=== PATIENT | male | born 1990 | race Caucasian/White ===

== ENCOUNTER 2016-08-26 00:13 | Emergency (ER) | payer SELFPAY ==
[~2016-08-26] VITALS: Ht 177.8 cm; Wt 72.0 kg
[2016-08-26 00:15] VITALS: BP 140/71; PULSE 66; RESP 16; TEMP 97.8; O2SAT 99
[2016-08-26] MEDS ORDERED: PENI500T PO (01:46)
[2016-08-26] MEDS ORDERED: IBUP800T23 PO (01:46)
--- NOTE | 2016-08-26 01:59 | PD ---
HPI Chief Complaint: Oral / Dental Pain or Problem Time Seen by Provider: 01:48 Travel History International Travel<30 days: No Contact w/Intl Traveler<30days: No Traveled to known affect area: No History of Present Illness HPI 26-year-old male presents for evaluation of dental pain. He has had intermittent dental pain for the past year. Today he woke up with increased pain in the right mandibular molars which prompted evaluation. The pain is throbbing pain that is constant worse with chewing. Associated with gingival edema. No fevers or chills. He reports that he saw a dentist in the past who recommended that he see an oral surgeon for this issue. No other complaints. PFSH Past Medical History Medical History: Denies Significant Hx Past Surgical History Surgical History: No Previous Surgery Social History Alcohol Use: No Tobacco Use: Yes Substance Use: No Allergies-Medications (Allergen,Severity, Reaction): Coded Allergies: No Known Allergies (Unverified , 08/26/16) Reported Meds & Prescriptions Reported Meds & Active Scripts Active Ibuprofen 800 Mg Tab 800 Mg PO Q6HR PRN Penicillin V Potassium 500 Mg Tab 500 Mg PO Q8H 10 Days Review of Systems Except as stated in HPI: all other systems reviewed are Neg Physical Exam Narrative GENERAL: Well-developed well-nourished male in no acute distress SKIN: Warm and dry. HEAD: Atraumatic. Normocephalic. EYES: Pupils equal and round. No scleral icterus. No injection or drainage. ENT: No nasal bleeding or discharge. Mucous membranes pink and moist. The right mandibular first molar is very decayed in the surrounding gumline is mildly edematous. No sublingual edema, no trismus. NECK: Trachea midline. No JVD. No lymphadenopathy, no submandibular edema Data Data Last Documented VS Vital Signs Date Time Temp Pulse Resp B/P Pulse Ox O2 Delivery O2 Flow Rate FiO2 08/26/16 00:15 97.8 66 16 140/71 99 Room Air MDM Medical Decision Making Medical Screen Exam Complete: Yes Emergency Medical Condition: Yes Medical Record Reviewed: Yes Differential Diagnosis Dental caries, pulpitis, pericoronitis, periodontal abscess Narrative Course 26-year-old male with intermittent dental pain for 1 year presents with one-day history of dental pain. Examination reveals dental caries. He is being discharged with penicillin, ibuprofen, recommended outpatient follow-up with a oral surgeon for definitive therapy. Diagnosis Primary Impression: Dental caries Additional Instructions: Medication as prescribed. Follow up with an oral surgeon. Return for any emergent medical conditions. Med/Other Pt SpecificInfo: Prescription(s) given Scripts Ibuprofen 800 Mg [id number] Mg PO Q6HR PRN (PAIN) #40 TAB Ref 0 Prov:Edie Viveros MD 08/26/16 Penicillin V Potassium 500 Mg [id number] Mg PO Q8H 10 Days Ref 0 Prov:Edie Viveros MD 08/26/16 Disposition: 01 DISCHARGE HOME Condition: Stable Clyde Quintanilla Aug 26, 2016 01:58
[2016-08-26] MEDS ORDERED: IBUPROFEN 800 MG TAB PO ONE (02:00)
[2016-08-26] MEDS ORDERED: PENICILLIN V POTASSIUM 500 MG TAB PO ONE (02:00)
== END 2016-08-26 02:17 | disposition home or self-care (01) ==
LOC: NEPD 00:13
DX: K02.9 Dental caries, unspecified (principal); Z72.0 Tobacco use
CPT/HCPCS: 99282

== ENCOUNTER 2016-09-23 23:13 | Emergency (ER) | payer SELFPAY ==
[~2016-09-23] VITALS: Ht 177.8 cm; Wt 68.0 kg
[~2016-09-23 23:13] MED LIST: IBUP800T23 PO; PENI500T PO
[2016-09-23 23:15] VITALS: BP 126/81; PULSE 60; RESP 16; TEMP 98.7; O2SAT 100
[2016-09-24 02:07] VITALS: BP 145/94; PULSE 53; RESP 18; O2SAT 100; O2SAT 99
[2016-09-24] MEDS ORDERED: ONDANSETRON HCL 4 MG/2 ML VIAL IV ONE (02:30)
[2016-09-24] MEDS ORDERED: SODIUM CHLOR 0.9% 1000 ML INJ 1,000 ML IV ONE (02:30)
[2016-09-24] MEDS ORDERED: CLINDAMYCIN INJ 900 MG in SODIUM CHLORIDE 0.9% INJ 100 ML IV ONE (02:30)
[2016-09-24] MEDS ORDERED: KETOROLAC TROMETHAMINE 30 MG/ML (IVP) VIAL IV PUSH ONE (02:30)
[2016-09-24 02:40] LABS: AUTOMATED NEUTROPHIL # 7.9 TH/MM3 (1.8-7.7); BASOPHIL % 0.2 % (0.0-2.0); EOSINOPHIL # 0.2 TH/MM3 (0-0.4); EOSINOPHIL % 1.4 % (0.0-4.0); HEMO FLAGS DIFF FINAL; MEAN CELL VOLUME 88.3 FL (80.0-100.0); MEAN CORPUSCULAR HEMOGLOBIN 29.8 PG (27.0-34.0); MEAN CORPUSCULAR HGB CONC 33.8 % (32.0-36.0); MONO % 10.6 % (0.0-8.0); NEUT % 63.8 % (16.0-70.0); PLATELET COUNT 188 TH/MM3 (150-450); RED BLOOD COUNT 4.64 MIL/MM3 (4.50-5.90); RED CELL DISTRIBUTION WIDTH 13.9 % (11.6-17.2); WHITE BLOOD COUNT 12.4 TH/MM3 (4.0-11.0)
--- NOTE | 2016-09-24 02:52 | PD ---
HPI Chief Complaint: Oral / Dental Pain or Problem Time Seen by Provider: 02:05 Travel History International Travel<30 days: No Contact w/Intl Traveler<30days: No Traveled to known affect area: No History of Present Illness HPI The patient is a 26 year old male who presents to the [facility] emergency department with a history of right-sided jaw pain and swelling that he reports recurred over the last few days. He reports that for the last year and a half he's intermittently had swelling and pain to a molar in the right mandible. He reports that he is currently uninsured and has not been able to afford following up with a dentist. He reports that he's been to the emergency department on multiple occasions and received antibiotic. He reports that the symptoms temporarily clear up and then recur. He denies having any fevers. He denies having any drainage in his mouth. He denies having any nausea, vomiting , or diarrhea. The patient was last treated through the emergency department related to a dental infection on August 26, 2016. He reports he was treated with penicillin which he reports did not seem to help much. On review of systems, the patient denies any recent cough, congestion, neck pain, chest pain , shortness of breath, abdominal pain, urinary symptoms, or neurologic symptoms. [facility] Past Medical History Narrative Medical The patient's past medical history is reportedly none. Medical History: Denies Significant Hx Diminished Hearing: No Tetanus Vaccination: Unknown Influenza Vaccination: No Past Surgical History Narrative Surgical The patient's past surgical history is reportedly none. Surgical History: No Previous Surgery Social History Alcohol Use: No Tobacco Use: Yes (1-2 cigarettes per day) Substance Use: No Allergies-Medications (Allergen,Severity, Reaction): Coded Allergies: No Known Allergies (Unverified , 09/23/16) Reported Meds & Prescriptions Reported Meds & Active Scripts Active No Active Prescriptions or Reported Medications Review of Systems General / Constitutional: No: Fever, Chills Eyes: No: Visual changes HENT: Positive: Headaches, Dental Difficulties, No: Rhinorrhea, Congestion, Neck Stiffness, Neck Pain Cardiovascular: No: Chest Pain or Discomfort Respiratory: No: Shortness of Breath Gastrointestinal: No: Abdominal Pain Genitourinary: No: Dysuria Musculoskeletal: No: Pain Skin: No Rash Neurologic: No: Weakness, Focal Abnormalities, Change in Mentation, Slurred Speech, Sensory Disturbance Psychiatric: No: Depression Endocrine: No: Polydipsia Hematologic/Lymphatic: No: Easy Bruising Physical Exam Narrative General: The patient is a well-developed well-nourished male in no acute distress. Head and Neck exam: Head is normocephalic atraumatic. The patient has evidence of swelling along the right side of the face, tracking along the right mandible. There is tenderness to palpation along the site. No crepitus or step-off. No erythema or ecchymosis. Eyes: EOMI, pupils are equal round and reactive to light. Ears: Tympanic membranes are pearly with a good cone of light, no erythema or exudate bilaterally. Nose: Midline septum with pink mucous membranes Mouth: Dentition is decayed down to the gumline along a mandibular molar, and a maxillary molar on the right side. There is tenderness on palpation surrounding the mandibular molar with decay with surrounding swelling of the gumline, however no noah abscess formation visualized. Moist mucus membranes. Posterior oropharynx is not erythematous. No tonsillar hypertrophy. Uvula midline. Airway patent. Neck: No palpable lymphadenopathy. No nuchal rigidity. No thyromegaly. Cardiovascular: Regular rate and rhythm without murmurs, gallops, or rubs. Lungs: Clear to auscultation bilaterally. No wheezes, rhonchi, or rales. Abdomen: Soft, without tenderness to palpation in all 4 quadrants of the abdomen. No guarding, rebound, or rigidity. Normal bowel sounds are audible. Extremities: No clubbing, cyanosis, or edema. Neurologic Exam: Grossly nonfocal. Skin Exam: No rash noted. Intact skin that is warm and dry. Data Data Last Documented VS Vital Signs Date Time Temp Pulse Resp B/P Pulse Ox O2 Delivery O2 Flow Rate FiO2 09/24/16 02:07 53 18 145/94 100 Room Air 09/23/16 23:15 98.7 Orders Complete Blood Count With Diff (09/24/16 02:26) Comprehensive Metabolic Panel (09/24/16 02:26) Iv Access Insert/Monitor (09/24/16 02:26) Ecg Monitoring (09/24/16 02:26) Oximetry (09/24/16 02:26) Ondansetron Inj (Zofran Inj) (09/24/16 02:30) Sodium Chlor 0.9% 1000 Ml Inj (Ns 1000 M (09/24/16 02:30) Clindamycin Inj (Cleocin Inj) (09/24/16 02:30) Ct Facial Bones W/O Iv Cont (09/24/16 02:28) Ketorolac Inj (Toradol Inj) (09/24/16 02:30) Labs Laboratory Tests Test 09/24/16 02:00 White Blood Count 12.4 TH/MM3 Red Blood Count 4.64 MIL/MM3 Hemoglobin 13.9 GM/DL Hematocrit 41.0 % Mean Corpuscular Volume 88.3 FL Mean Corpuscular Hemoglobin 29.8 PG Mean Corpuscular Hemoglobin 33.8 % Concent Red Cell Distribution Width 13.9 % Platelet Count 188 TH/MM3 Mean Platelet Volume 8.9 FL Neutrophils (%) (Auto) 63.8 % Lymphocytes (%) (Auto) 24.0 % Monocytes (%) (Auto) 10.6 % Eosinophils (%) (Auto) 1.4 % Basophils (%) (Auto) 0.2 % Neutrophils # (Auto) 7.9 TH/MM3 Lymphocytes # (Auto) 3.0 TH/MM3 Monocytes # (Auto) 1.3 TH/MM3 Eosinophils # (Auto) 0.2 TH/MM3 Basophils # (Auto) 0.0 TH/MM3 CBC Comment DIFF FINAL Differential Comment Sodium Level 142 MEQ/L Potassium Level 3.6 MEQ/L Chloride Level 103 MEQ/L Carbon Dioxide Level 33.9 MEQ/L Anion Gap 5 MEQ/L Blood Urea Nitrogen 15 MG/DL Creatinine 0.87 MG/DL Estimat Glomerular Filtration 105 ML/MIN Rate Random Glucose 94 MG/DL Calcium Level 9.2 MG/DL Total Bilirubin 0.3 MG/DL Aspartate Amino Transf 13 U/L (AST/SGOT) Alanine Aminotransferase 26 U/L (ALT/SGPT) Alkaline Phosphatase 62 U/L Total Protein 7.3 GM/DL Albumin 4.1 GM/DL [facility] Medical Decision Making Medical Screen Exam Complete: Yes Emergency Medical Condition: Yes Medical Record Reviewed: Yes Interpretation(s) Last Impressions Maxillofacial CT 09/24/16 0228 Signed Impressions: Service Date/Time: Saturday, September 24, 2016 03:09 - CONCLUSION: 1. Extensive soft tissue swelling over the right side of the mandible with several mildly prominent lymph nodes. There is no distinct abscess or gas bubbles. 2. No underlying bony abnormality. 3. Mucosal thickening versus retention cysts in the maxillary sinuses right greater left. There is mild mucosal thickening in the right frontal sinus. Tony Fulton MD Differential Diagnosis Dental decay with abscess formation, versus soft tissue swelling, versus sialadenitis, versus lymphadenitis Narrative Course During the course of the patients emergency department visit, the patients history, examination, and differential diagnosis were reviewed with the patient. The patient had IV access obtained and blood work sent for analysis. The patient was placed on a planning manager with oximetry and blood pressure monitoring. A CT scan of the facial bones was ordered to evaluate further for possible dental abscess. The patient was initially provided the patient was given Toradol 15 mg IV, normal saline 1 L IV fluid bolus, clindamycin 900 mg IV, Zofran 4 mg IV. The patients laboratory studies were reviewed and remarkable for a white count 12.4, hemoglobin 13.9, platelets 188 with monocytes at 10.6. , CMP is remarkable for CO2 of 33.9, AST 13 Radiology studies were reviewed and remarkable for a CT scan of the face that reveals extensive soft tissue swelling over the right side of the mandible with several mildly prominent lymph nodes. There is no distinct abscess or gas bubbles. No underlying bony abnormality. Mucosal thickening versus retention cyst in the maxillary sinus right greater than left. There is mild mucosal thickening in the right frontal sinus. The patient was given information regarding emergency dental follow-up. The patient is instructed regarding the importance of following up with a dentist as soon as possible. The patient will be discharged home with a prescription for clindamycin and ibuprofen. The patient is resting comfortably and feels better, is alert and in no distress. The patients results and examination findings were discussed with the patient. The repeat examination is unremarkable and benign. The history, exam, diagnostic testing, and current condition do not suggest any significant pathology to warrant further testing, continued ED treatment, admission, or surgical evaluation at this point. The vital signs have been stable. The patient does not have uncontrollable pain, intractable vomiting, or other significant symptoms. The patient's condition is stable and appropriate for discharge. The patient will pursue further outpatient evaluation with a primary care physician or other designated or consulting physician as indicated in the discharge instructions. The patient expressed understanding and was agreeable with this plan. Diagnosis Primary Impression: Dental caries Additional Impression: Right facial swelling Referrals: Dentist 2 days Patient Instructions: Dental Abscess (ED), Dental Caries (ED), General Instructions Med/Other Pt SpecificInfo: Prescription(s) given Scripts Ibuprofen 600 Mg [id number] Mg PO Q8HR PRN (PAIN) #12 TAB Ref 0 Prov:Edie Viveros MD 09/24/16 Clindamycin 300 Mg [id number] Mg PO Q6H 10 Days Ref 0 Prov:Edie Viveros MD 09/24/16 Disposition: 01 DISCHARGE HOME Condition: Stable Edie Viveros MD September 24, 2016 02:52
[2016-09-24 02:57] LABS: ALT (GPT) 26 U/L (12-78); ANION GAP 5 MEQ/L (5-15); AST (GOT) 13 U/L (15-37); BICARBONATE 33.9 MEQ/L (21.0-32.0); BLOOD UREA NITROGEN 15 MG/DL (7-18); CHLORIDE 103 MEQ/L (98-107); GLOMERULAR FILTRATION RATE 105 ML/MIN (>89); POTASSIUM 3.6 MEQ/L (3.5-5.1); SODIUM (NA) 142 MEQ/L (136-145)
[2016-09-24 02:59] LABS: ALKALINE PHOSPHATASE 62 U/L (45-117); TOTAL BILIRUBIN ADULT 0.3 MG/DL (0.2-1.0)
--- NOTE | 2016-09-24 03:48 | RADRPT ---
EXAM DATE/TIME: 09/24/2016 03:09 [place] COMPARISON: No previous studies available for comparison. INDICATIONS : Right jaw pain and swelling. RADIATION DOSE: 34.47 CTDIvol (mGy) MEDICAL HISTORY : None SURGICAL HISTORY : None. ENCOUNTER: Initial ACUITY: 3 weeks PAIN SCORE: 10/10 LOCATION: Right facial TECHNIQUE: Volumetric scanning of the facial bones was performed. Using automated exposure control and adjustme nt of the mA and/or kV according to patient size, radiation dose was kept as low as reasonably achiev able to obtain optimal diagnostic quality images. FINDINGS: ORBITS: The orbital and infraorbital osseous structures are intact. The retroconal structures have a normal configuration. No radiopaque foreign bodies are seen. NASAL BONE: The nasal bone and maxillary spine are intact ZYGOMATIC ARCHES: Symmetric without evidence of fracture. SINUSES: There is mucosal thickening versus retention cysts in the maxillary sinuses. There is mild mucosal th ickening in the right frontal sinus.. No air-fluid levels seen. NASAL CAVITY: The nasal septum is intact and midline. The lacrimal ducts are intact. SOFT TISSUES: No radiopaque foreign bodies seen. There is extensive soft tissue swelling over the right side of the mandible with several small prominent submental lymph nodes. There are no gas bubbles or fluid colle ctions. The mandible is intact with no evidence of fracture. INTRACRANIAL: No intracranial air seen. CRIBIFORM PLATE: Grossly intact. CONCLUSION: 1. Extensive soft tissue swelling over the right side of the mandible with several mildly prominent l ymph nodes. There is no distinct abscess or gas bubbles. 2. No underlying bony abnormality. 3. Mucosal thickening versus retention cysts in the maxillary sinuses right greater left. There is mi ld mucosal thickening in the right frontal sinus. Toyn Fulton MD on September 24, 2016 at 3:43 Board Certified Radiologist. This report was verified electronically.
[2016-09-24] MEDS ORDERED: CLIN1CAP6 PO (04:00)
[2016-09-24] MEDS ORDERED: IBUP-232 PO (04:00)
== END 2016-09-24 04:22 | disposition home or self-care (01) ==
LOC: NEPE 23:13
DX: K02.9 Dental caries, unspecified (principal); Z72.0 Tobacco use
CPT/HCPCS: 70486; 80053; 85025; 96374; 96375; 99284; J1885; J2405; J7030